=== PATIENT | female | born 2000 | race Caucasian/White ===

== ENCOUNTER 2025-05-31 15:30 | Emergency (ER) | payer OTHER, SELFPAY ==
--- NOTE | ~2025-05-31 | XR_ITS ---
CLINICAL HISTORY: pain --- Additional Notes or Special Instructions: 4th finger 3 views right 4th digit including PA hand Comparison: None Findings: No fracture subluxations or dislocations. The 4th digit is not fully extended. Joint intervals are preserved. Soft tissue swelling of the 4th digit No periostitis No radiopaque foreign body. Impression: 1. Soft tissue swelling 4th digit no acute osseous abnormality. This document has been electronically signed by: Shawn Elam MD on 05/31/2025 17:23:49
[2025-05-31 15:58] VITALS: BP 125/61; PULSE 117; RESP 16; TEMP 36.9; O2SAT 98; BMI 37.6
--- NOTE | 2025-05-31 16:00 | ED_ITS ---
HPI - General Adult General Chief complaint: General Medical Stated complaint: Rt hand swollen fingers Time Seen by Provider: 05/31/25 20:11 Source: patient Limitations: no limitations History of Present Illness ED Provider: Em Lundy PA-C HPI narrative: 25 y/o female presents with right ring finger pain and swelling x1 day. Patient states the pain and swelling has progressed throughout the day, she can not fully extend. Associated redness and red line tracking into her palm. Denies fever. Related Data Allergies Allergy/AdvReac Type Severity Reaction Status Date / Time amoxicillin Allergy Intermediate Hives Verified 05/31/25 16:01 cephalexin (From Keflex) Allergy Intermediate Hives Verified 05/31/25 16:01 Review of Systems 2 Review of Systems: Yes all other systems are reviewed and are negative Constitutional: Constitutional: Denies fatigue and Denies fever(s) Musculoskeletal: Musculoskeletal: Reports arthralgias and Reports joint swelling Integumentary/Breasts: Skin/Breast: Reports erythema Endocrine: Endocrine: Denies fatigue PMFSH Past Medical History Attestation statement: The following information was validated with the patient. Social History Social History Smoked in Last 30 Days: No Use of substances other than those prescribed or required for medical reasons: No Advance Directives: No Advance Directives Information Provided: No Do you have a plan to hurt others: No Plan Patient : No Physical Exam ED Vital Signs: Vital Signs - 24 hr 05/31/25 15:58 05/31/25 21:22 05/31/25 22:48 Temperature 98.4 F 97.8 F 97.8 F Pulse Rate 117 H 123 H 104 H Respiratory Rate 16 20 16 Blood Pressure 125/61 123/70 102/70 Pulse Oximetry 98 96 98 Oxygen Delivery Method Room Air Room Air Room Air 05/31/25 22:50 Temperature 97.8 F Pulse Rate 104 H Respiratory Rate 16 Blood Pressure 102/70 Pulse Oximetry 98 Oxygen Delivery Method Room Air BMI result Body Mass Index 37.6 Const Other: Alert, anxious Orientation/consciousness: patient oriented x3 Resp Effort & Inspection: normal respiratory effort Cardio Other: Normal peripheral perfusion Skin Other: Warm dry no rash Neuro General: patient oriented x3, gait normal, no focal motor deficits and CN's II- XI intact bilaterally Extrem Other: The 4th digit of the right hand has fusiform swelling with the overlying erythema, held in flexion, can not extend, palpable pain along the volar aspect, Psych Other: Cooperative Course Course Course Narrative: RME, this is a rapid medical exam performed by Héctor Buck please refer to primary provider for complete H&P- 25-year-old female presents for evaluation of atraumatic right 4th finger pain and swelling. She had an injury a couple of years ago but no recent injury. She woke up with redness pain and swelling this morning. Denies any injury. She is unable to bend the finger. On exam she has significant edema to the proximal right 4th finger mostly in the ventral surface. Plan for labs and an x-ray Consultations Consultation #1: John Stahl PA-C from ortho service.....he reached out to Dr. Reyes, . We do not have hand coverage over the weekend, the patient will have to be transferred Time: 20:25 Consultation #2: Reaching out to [place] Time: 21:07 Consultation #3: Getting a call back from [place], the patient will be an ED to ED transfer, the accepting emergency room attending is Dr. Sofia, the hand surgeon is Dr. Newton Time: 22:30 Additional Consultation(s): 1121 pm the patient began to get itchy after the vancomycin was started, no rash, no angioedema, no sore throat or trouble breathing no urticaria, giving Benadryl Medications Administered Discontinued Medications Generic Name Dose Route Start Last Admin Trade Name Freq PRN Reason Stop Dose Admin Diazepam 5 mg 05/31/25 22:23 05/31/25 22:29 Diazepam 10 Mg/2 Ml Cartridge IVPUSH 05/31/25 22:24 5 mg STAT STA Administration Vancomycin HCl 1,000 mg/ 535 mls @ 267.5 mls/hr 05/31/25 20:28 05/31/25 22:29 Vancomycin HCl 750 mg/ Sodium IV 05/31/25 22:27 267.5 mls/hr Chloride ONCE ONE Administration Levofloxacin 750 mg in 150 mls @ 100 mls/hr 05/31/25 20:28 05/31/25 22:29 Levaquin IV 05/31/25 21:57 Infused ONCE ONE Infusion Ketorolac Tromethamine 15 mg 05/31/25 20:51 05/31/25 21:15 Ketorolac Tromethamine 15 Mg/Ml Vial IVPUSH 05/31/25 20:52 15 mg ONCE ONE Administration Morphine Sulfate 4 mg 05/31/25 20:51 05/31/25 21:15 Morphine Sulfate 4 Mg/Ml Cartridge IVPUSH 05/31/25 20:52 4 mg ONCE ONE Administration Protocol Medical Decision Making Medical Decision Making [facility] Narrative: 25 y/o female presents with right ring finger pain and swelling x1 day. Patient states the pain and swelling has progressed throughout the day, she can not fully extend. Associated redness and red line tracking into her palm. Denies fever. No chronic issues History: Per patient I have considered the following differential diagnoses: Tenosynovitis, cellulitis, purulent cellulitis, fracture, dislocation, contusion Plan: Screening labs including x-ray already obtained from triage, I do have concern for tenosynovitis we will be reaching out to the orthopedic service. Adding on blood cultures, lactic, starting vanco and Levaquin, given her allergy profile. I have independently reviewed the following tests: Labs: Leukocytosis with left shift, not anemic, no electrolyte abnormality, ESR 31, CRP 2.56, not present X-ray:Findings: No fracture subluxations or dislocations. The 4th digit is not fully extended. Joint intervals are preserved. Soft tissue swelling of the 4th digit No periostitis No radiopaque foreign body. Impression: 1. Soft tissue swelling 4th digit no acute osseous abnormality. Differential Diagnosis Differential Diagnoses: The differential diagnosis associated with the presentation includes See [facility] Admission/Observation Consideration of admission/observation: Escalation of care including admission/observation considered will require transfer Consult Healthcare Provider Management of the patient was discussed with: Test Consultant orthopedic service Lab Data [facility] Lab Attestation statement: I reviewed the patient's lab results. 05/31/25 16:55 05/31/25 16:55 Labs: Lab Results 05/31/25 05/31/25 Range/Units 16:55 20:41 WBC 14.7 H (4.8-10.8) X10*3/uL RBC 4.88 (4.20-5.50) X10*6/uL Hgb 15.1 (12.0-16.0) g/dl Hct 43.9 (37.0-47.0) % MCV 90.0 (80.0-98.0) fL MCH 30.9 (27.0-33.0) pg MCHC 34.4 (31.0-35.0) g/dl RDW 13.2 (11.0-16.0) % Plt Count 443 H (160-400) X10*3/uL MPV 9.0 L (9.4-12.3) fL Immature Gran % (Auto) 0.3 (0.0-0.4) % Neut % (Auto) 69.8 (45-73) % Lymph % (Auto) 20.8 (20-40) % Lander % (Auto) 7.2 (2-11) % Eos % (Auto) 1.4 (0-4) % Baso % (Auto) 0.5 (0-2) % Lymph # (Auto) 3.1 (1.2-4.9) X10*3/uL Lander # (Auto) 1.1 (0.1-1.2) X10*3/uL Eos # (Auto) 0.2 (0.0-0.4) X10*3/uL Baso # (Auto) 0.1 (0.0-0.2) X10*3/uL Abs Immat Gran (auto) 0.04 H (0.00-0.03) X10*3/uL Absolute Neuts (auto) 10.2 H (2.0-8.3) x10*3/uL Absolute Nucleated RBC 0.000 (0.0-0.012) X10*3/uL Nucleated RBC % (auto) 0.0 (0.0-0.2) /100WBC ESR 31 H (1-20) MM/HR Sodium 137 (135-145) mmol/L Potassium 3.6 (3.3-5.1) mmol/L Chloride 104 (96-108) mmol/L Carbon Dioxide 23 (22-29) mmol/L Anion Gap 14 (12-20) BUN 12 (9-16) mg/dL Creatinine 0.80 (0.5-1.4) mg/dL Estim Creat Clear Calc 128.6 Estimated GFR > 60 Random Glucose 93 (60-115) mg/dL Lactic Acid 0.8 (0.5-2.0) mmol/L Calcium 9.4 (8.4-10.2) mg/dL Total Bilirubin 0.5 (0.0-1.0) mg/dL AST 23 (5-31) U/L ALT 26 (0-31) U/L Alkaline Phosphatase 120 H (39-117) U/L C-Reactive Protein 2.56 H (< or = 0.50) mg/dL Total Protein 7.1 (6.5-8.0) g/dL Albumin 4.6 (3.5-5.0) g/dL Beta HCG, Quant < 2 mIU/mL Radiology Impression Discussion of test interpretation with radiology: I have reviewed the radiologist's reading. Discharge Plan Discharge Clinical Impression: Tenosynovitis of finger Patient Disposition: Xfer [facility] Transfer Details: We do not have orthopedic hand coverage over the weekend Interventions: Acute Care Transfer Worksheet (ED) Last Done: 05/31/25 22:50 Print Language: Lao
[2025-05-31 17:05] LABS: MANUAL DIFF FLAG NO
[2025-05-31 17:12] LABS: Hematocrit 43.9 % (37.0-47.0); Hemoglobin 15.1 g/dl (12.0-16.0); Imm Gran Abs Auto 0.04 X10*3/uL (0.00-0.03); Imm Gran Pct Auto 0.3 % (0.0-0.4); Lymphocytes Absolute Auto 3.1 X10*3/uL (1.2-4.9); Mean Corpuscular HGB Conc 34.4 g/dl (31.0-35.0); Mean Corpuscular Hemoglobin 30.9 pg (27.0-33.0); Mean Corpuscular Volume 90.0 fL (80.0-98.0); NRBC Abs Auto 0.000 X10*3/uL (0.0-0.012); NRBC Pct Auto 0.0 /100WBC (0.0-0.2); Platelet Count 443 X10*3/uL (160-400); Red Blood Count 4.88 X10*6/uL (4.20-5.50); White Blood Count 14.7 X10*3/uL (4.8-10.8)
[2025-05-31 17:24] LABS: Alanine Aminotransferase 26 U/L (0-31); Albumin Level 4.6 g/dL (3.5-5.0); Alkaline Phosphatase 120 U/L (39-117); Anion Gap 14 (12-20); Aspartate Amino Transferase 23 U/L (5-31); Blood Urea Nitrogen 12 mg/dL (9-16); Calcium 9.4 mg/dL (8.4-10.2); Carbon Dioxide 23 mmol/L (22-29); Chloride 104 mmol/L (96-108); Creatinine Clr Calc Pharmacy 128.6; Estimated Glomerular Filt Rate > 60; Potassium 3.6 mmol/L (3.3-5.1); Sodium 137 mmol/L (135-145); Total Protein 7.1 g/dL (6.5-8.0)
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
--- OUTSIDE RECORDS SUMMARY | 2025-05-31 20:16 | XMS_ITS ---
Author Name [facility] Organization Unknown Care Team Organization Name Specialty Phone Email Start Date End Da te [facility] Petros Allison Primary Care 11/11/20222023 [facility] Jasmin Primary Care 04/12/2022 01/22/2024
[2025-05-31 21:22] VITALS: BP 123/70; PULSE 123; RESP 20; TEMP 36.6; O2SAT 96
[2025-05-31] MEDS: diazePAM 10 MG/2 ML CARTRIDGE 5 MG IVPUSH (22:29)
[2025-05-31] MEDS: vancomycin HCL 1,000 MG, vancomycin HCL 750 MG in 0.9 % Sodium Chloride 500 ML 267.5 MG IV (22:29)
[2025-05-31 22:48] VITALS: BP 102/70; PULSE 104; RESP 16; TEMP 36.6; O2SAT 98
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
[2025-05-31 22:50] VITALS: BP 102/70; PULSE 104; RESP 16; TEMP 36.6; O2SAT 98
--- NOTE | 2025-05-31 23:22 | PC.NURSE ---
this nurse called to exam room by pt, pt experiencing extreme itching. vancomycin stopped, CANDELARIA Lundy to bedside,benadryl given
== END 2025-05-31 23:56 | disposition short-term general hospital (02) ==
PROVIDERS: Physician Assistant; Physician Assistant Medical; Emergency Provider Student in an Organized Health Care Education/Training Program; PCP Internal Medicine
DX: M65.941 Unspecified synovitis and tenosynovitis, right hand (principal); M79.89 Other specified soft tissue disorders; M79.644 Pain in right finger(s)
CPT/HCPCS: 36415; 73140; 80053; 83605; 84702; 85025; 85652; 86140; 87040; 96365; 96366; 96367; 96375; 99285; J1200; J1885; J1956; J2270; J3360; J3374

== ENCOUNTER → 2025-05-31 16:00 | Outpatient (BNV) | payer OTHER, SELFPAY | PROVIDERS: PCP Internal Medicine; Visit Provider Radiology Diagnostic Radiology | DX: R22.31 Localized swelling, mass and lump, right upper limb (principal) | CPT/HCPCS: 73140 ==